=== PATIENT | female | born 1995 | race Two or more races ===

== ENCOUNTER 2016-11-24 17:25 | Observation (INO) | payer MEDICAID, OTHER ==
[2016-11-24] MEDS ORDERED: PREN-153 OR (18:15)
== END 2016-11-24 19:15 | disposition home or self-care (01) | DRG 566 ==
LOC: LDRP 17:25
PROVIDERS: ADMIT Specialist; ATTEND Specialist
DX: O42.92 Full-term premature rupture of membranes, unspecified as to length of time between rupture and onset of labor (principal); Z87.891 Personal history of nicotine dependence; Z3A.37 37 weeks gestation of pregnancy
CPT/HCPCS: 59025; 81002; G0378